=== PATIENT | male | born 1950 | race Caucasian/White ===

== ENCOUNTER 2018-11-12 11:16 | Emergency (ER) | payer MEDICARE ==
[~2018-11-12] VITALS: Ht 190.5 cm; Wt 105.2 kg
--- OUTSIDE RECORDS SUMMARY | 2018-11-12 11:19 | XMS REPORT ---
Author Author [facility] Address Unknown Phone Unavailable Care Team Providers Care Mechanical Insulator Name Role Phone JO STEVENS Unavailable Unavailable Problems This patient has no known problems. Allergies, Adverse Reactions, Alerts This patient has no known allergies or adverse reactions. Medications This patient has no known medications. Results Test Description Test Time Test Comments Text Results Atomic Results Result Comments TISSUE EXAM 2017-04-27 13:22:00 Surgical Pathology Report Case: [id number] Authorizing Provider: Courtney Stevens, Collected: 04/13/2017 0748 Ordering Location: [facility] PERI[facility] Received: 04/13/2017 0858 SERVICES Pathologist: Woodrow Webster MD Specimen: Femoral Head,Left Hip BONE AND SOFT TISSUE, LEFT HIP, ARTHROPLASTY: -OSTEOARTHRITIS AND CHRONIC PROLIFERATIVE SYNOVITIS Signing Pathologist Direct Phone Line: [phone] signed by Woodrow Webster MD on 04/27/2017 at 1:22 [id number] osteoarthritis left hipLeft femoral headReceived fresh labeled "femoral head, left hip" is a 7.5 x 6.0 x 3.5 cm femoral head. The articular surface is goyal-white to yellow-schmitt and displays focal areas of pitting and eburnation. Also noted is osteophyte formation surrounding the periphery. Section code: A1-A2, bone for decalcification; A3, soft tissue for decalcification. DB/pl The sections show reduplication of the tidemark with eburnation and osteophyte formation. The synovial tissue reveals a mild proliferation of small blood vessels and subsynovial edema with chronic inflammation. BASIC METABOLIC PANEL 2017-04-14 04:30:00 SODIUM (BEAKER) (test rlrz=576) 133 meq/L 136-145 POTASSIUM (BEAKER) (test tnyn=343) 4.6 meq/L 3.5-5.1 CHLORIDE (BEAKER) (test qcps=167) 106 meq/L 98-107 CO2 (BEAKER) (test bons=879) 17 meq/L 22-29 BLOOD UREA NITROGEN (BEAKER) (test rscn=084) 21 mg/dL 7-21 CREATININE (BEAKER) (test tpcp=799) 0.87 mg/dL 0.57-1.25 GLUCOSE RANDOM (BEAKER) (test eccr=808) 228 mg/dL 70-105 CALCIUM (BEAKER) (test fnzh=576) 8.2 mg/dL 8.4-10.2 EGFR (BEAKER) (test rslg=5103) 88 mL/min/1.73 sq m ESTIMATED GFR IS NOT ACCURATE CREATININE CLEARANCE IN PREDICTING GLOMERULAR FILTRATION RATE. ESTIMATED GFR IS NOT APPLICABLE FOR DIALYSIS PATIENTS. HEMOGLOBIN AND [id number] 04:16:00* Test Item Value Reference Range Comments HEMOGLOBIN (BEAKER) (test zomu=173) 12.8 GM/DL 13.7-17.5 HEMATOCRIT (BEAKER) (test yexc=863) 37.6 % 40.1-51.0 [id number] 12:13:00* Test Item Value Reference Range Comments HEMOGLOBIN (BEAKER) (test trih=009) 16.3 GM/DL 13.0-16.8 PLATELET [id number] 12:13:00* Test Item Value Reference Range Comments PLATELET COUNT (BEAKER) (test swfr=773) 283 K/CU MM 150-430
--- OUTSIDE RECORDS SUMMARY | 2018-11-12 11:19 | XMS REPORT | Clinical Summary ---
Author Author [facility] Organization [facility] Address Unknown Phone Unavailable Care Team Providers Care Emergency Department Name Role Phone Diandra Vásquez MD PCP Allergies Comments Active Allergy Reactions Severity Noted Date Hydromorphone Hives 08/11/2016 migraines Morphine Hcl Other (See 08/11/2016 Comments) Medications End Date Status Medication Sig Dispensed Refills Start Date Active esomeprazole (NEXIUM) 40 Take 40 mg by 0 MG capsule mouth daily. Active diphenhydrAMINE Take 25 mg by 0 (BENADRYL) 25 mg capsule mouth every 6 (six) hours as needed for Itching. Active cetirizine (ZYRTEC) 10 MG Take 10 mg by 0 tablet mouth daily. Active Problems Problem Noted Date Status post left hip replacement 04/13/2017 Social History Date Tobacco Use Types Packs/Day Years Used Never Smoker Smokeless Tobacco: Never Used Alcohol Use Drinks/Week oz/Week Comments No Sex Assigned at Date Recorded Not on file Industry Job Start Date Occupation Not on file Not on file Not on file Travel End Travel History Travel Start No recent travel history available. Last Filed Vital Signs Not on file Plan of Treatment Not on file Implants Device Identifier Shelf Expiration Date Model / Serial / Lot Implanted Type Area Manufactur er 10/24/2021 502-03-58F / / [id number] Shell Mary Hmsphr Clus H 58mm Joints Left: Hip MCKAY:ST 502-03-58f - [id number] TRAVIS Implanted: Qty: 1 on 04/13/2017 by Courtney Aquino MD CS 11/30/2021 623-00-36F / / [id number] Insrt Trident X3 0deg F 36mm Joints Left: Hip MCKAY:ST 623-00-36f - [id number] TRAVIS Implanted: Qty: 1 on 04/13/2017 by Courtney Aquino MD 11/30/2021 [id number] / / [id number] Scr Canc 6.5x25mm Ss [id number] - Joints Left: Hip MCKAY:ST [id number] TRAVIS Implanted: Qty: 1 on 04/13/2017 by Courtney Aquino MD 03/23/2022 [id number] / / [id number] Scr Canc 6.5x25mm Ss [id number] - Joints Left: Hip MCKAY:ST [id number] TRAVIS Implanted: Qty: 1 on 04/13/2017 by Courtney Aquino MD 06/26/2021 [id number] / / [id number] Hip Stem Size 7 37mm X 114mm Joints Left: Hip MCKAY:ST 1495-7156 - [id number] TRAVIS Implanted: Qty: 1 on 04/13/2017 by Courtney Aquino MD 03/09/2021 [id number] / / [id number] Head Fem Biolox V40 36mm [id number] Joints Left: Hip MCKAY:ST - [id number] TRAVIS Implanted: Qty: 1 on 04/13/2017 by Courtney Aquino MD Results Not on fileafter 11/11/2017 Insurance Payer Benefit Subscriber ID Type Phone Address Plan / Group MEDICARE MEDICARE A xxxxxxxxxx Medicare B MCR SUPPLEMENT/INDIVIDUAL AARP/UNITE xxxxxxxxxxx [facility] Advance Directives For more information, please contact: [address] [address] Date Inactivated Comments Code Status Date Activated 04/14/2017 5:24 PM Full Code 04/13/2017 11:38 AM This code status was determined by: Patient
[2018-11-12 12:25] VITALS: BP 149/97
== END 2018-11-12 12:29 | disposition home or self-care (01) ==
LOC: FSED 11:16
DX: R05 Cough (principal); R11.2 Nausea with vomiting, unspecified; R19.7 Diarrhea, unspecified; J00 Acute nasopharyngitis [common cold]; R51 Headache; K21.9 Gastro-esophageal reflux disease without esophagitis
CPT/HCPCS: 83518; 87400; 99283